=== PATIENT | female | born 1955 | race Caucasian/White ===

== ENCOUNTER 2020-07-26 10:27 | Outpatient (CLI) | payer MEDICARE, SELFPAY ==
--- NOTE | ~2020-07-26 | MM_ITS ---
EXAMINATION: MM screening angelique BI w radha HISTORY: Screening TECHNIQUE: Craniocaudal and mediolateral oblique 3-D tomosynthesis images were obtained and synthetic 2-D images were generated. CAD analysis was submitted and interpreted. COMPARISON: Comparison to multiple prior studies sequentially, with oldest reviewed study dated 08/2010. BREAST PARENCHYMAL COMPOSITION: There are scattered areas of fibroglandular density. FINDINGS: There is no evidence of suspicious mass, calcification, or architectural distortion to sugg est malignancy in either breast. There has been no suspicious interval change. IMPRESSION: 1. No mammographic evidence of malignancy. 2. Recommend routine screening mammography in one year. BI-RADS Category 1: Negative Reviewed, dictated and finalized at location A. TY HOME DEMONSTRATION AGENT
== END 2020-07-26 10:28 | disposition home or self-care (01) ==
PROVIDERS: PCP Family Medicine; Visit Provider Family Medicine
DX: Z12.31 Encounter for screening mammogram for malignant neoplasm of breast (principal)
CPT/HCPCS: 77063; 77067

== ENCOUNTER 2020-10-31 12:55 | Outpatient (CLI) | payer MEDICARE, SELFPAY ==
--- NOTE | ~2020-10-31 | DEXA_ITS ---
Bone Density Report Name: Janki Alcaraz Age: 65 Sex: Female Ethnicity: White Date of : 1955 Indication: postmenopausal; hysterectomy; Referring Provider: NATALIYA SOLER Study: Bone densitometry was performed. Exam Date: October 31, 2020 Accession number: [id number] Bone Density: Region BMD T-score Z-score Classification AP Spine (L1-L4) 0.935 -1.0 0.8 Normal Femoral Neck (Left) 0.815 -0.3 1.2 Normal Total Hip (Left) 1.022 0.7 1.9 Normal Total Hip Bilateral Avg 0.998 0.5 1.7 Normal Femoral Neck (Right) 0.674 -1.6 0.0 Osteopenia Total Hip (Right) 0.973 0.3 1.5 Normal World Health Organization criteria for BMD impression classify patients as: Normal (T-score at or above -1.0), Osteopenia (T-score between -1.0 and -2.5), or Osteoporosis (T-score at or below -2.5). 10-year Fracture Risk(1): Major Osteoporotic Fracture 8.1% Hip Fracture 0.8% Reported Risk Factors: [place] (), Neck BMD=0.674, BMI=38.4 (1) FRAX(R) Version 3.08. Fracture probability calculated for an untreated patient. Fracture probability may be lower if the patient has received treatment. Previous Exams: Region Exam Age BMD T-score BMD Change BMD Change Date g/cm2 vs Baseline vs Previous AP Spine(L1-L4) 10/31/2020 65 0.935 -1.0 -0.157(-14.4%) -0.003(-0.3%)# 07/13/2013 58 0.939 -1.0 -0.154(-14.1%) -0.154(-14.1%) 09/01/2008 53 1.092 0.4 Total Hip(Left) 10/31/2020 65 1.022 0.7 0.004(0.4%)# 0.036(3.6%)# 07/13/2013 58 0.986 0.4 -0.031(-3.1%)# -0.031(-3.1%)# 09/01/2008 53 1.017 0.6 Total Hip(Right) 10/31/2020 65 0.973 0.3 0.024(2.6%)# -0.017(-1.7%)07/13/2013 58 0.990 0.4 0.042(4.4%)# 0.042(4.4%)# 09/01/2008 53 0.948 0.1 *Denotes significance at 95% confidence level, LSC for AP Spine = 0.022 g/cm2, LSC for Total Hip = 0.027 g/cm2 Clinical Information Provided by Patient: Has used the following medications: Vitamin D Has the following medical conditions: Hysterectomy Patient maximum height was 61 Menopause Age: 55 Drinks caffeinated beverages Onset of menses at age 16 Number of children 3 Impression: The patient has low bone mass, based on the Right Femoral Neck T-score. The patient has an estimated ten-year risk of hip fracture of 0.8% and an estimated ten-year risk of major fracture of 8.1%, based on the WHO FRAX algorithm. No significant bone loss was observed. Discussion: BONE DEN
== END 2020-10-31 12:56 | disposition home or self-care (01) ==
LOC: ANHIMG 12:58
PROVIDERS: PCP Family Medicine; Visit Provider Family Medicine
DX: Z78.0 Asymptomatic menopausal state (principal); Z51.81 Encounter for therapeutic drug level monitoring; Z79.899 Other long term (current) drug therapy; R73.03 Prediabetes; E78.2 Mixed hyperlipidemia; E55.9 Vitamin D deficiency, unspecified; I10 Essential (primary) hypertension; E03.9 Hypothyroidism, unspecified; M85.851 Other specified disorders of bone density and structure, right thigh; Z00.00 Encounter for general adult medical examination without abnormal findings
CPT/HCPCS: 77080

== ENCOUNTER 2021-09-29 10:02 | Outpatient (CLI) | payer MEDICARE, SELFPAY ==
--- NOTE | ~2021-09-29 | MM_ITS ---
EXAMINATION: MM screening angelique BI w radha HISTORY: Screening mammogram, family history of breast cancer in her mother. TECHNIQUE: Craniocaudal and mediolateral oblique 3-D tomosynthesis images were obtained and synthetic 2-D images were generated. CAD analysis was submitted and interpreted. COMPARISON: 07/26/2020, 06/17/2019, 11/09/2015 BREAST PARENCHYMAL COMPOSITION: There are scattered areas of fibroglandular density. FINDINGS: There is no evidence of suspicious mass, calcification, or architectural distortion to sugg est malignancy in either breast. There has been no suspicious interval change. IMPRESSION: 1. No mammographic evidence of malignancy. 2. Recommend routine screening mammography in one year. BI-RADS Category 1: Negative Reviewed, dictated and finalized at location A. FIELD TECHNICIAN
== END 2021-09-29 10:03 | disposition home or self-care (01) ==
LOC: ANHIMG 10:05
PROVIDERS: PCP Family Medicine; Visit Provider Family Medicine
DX: Z12.31 Encounter for screening mammogram for malignant neoplasm of breast (principal)
CPT/HCPCS: 77063; 77067

== ENCOUNTER 2021-10-13 11:00 | Outpatient (CLI) | payer MEDICARE, SELFPAY ==
--- NOTE | ~2021-10-13 | XR_ITS ---
XR lumbar spine min 4V DATE: 10/13/2021 11:23 INDICATION: Low back pain TECHNIQUE: AP, lateral, coned lateral lumbosacral and bilateral oblique views COMPARISON: September 10, 2007 lumbar spine FINDINGS: Degenerative spurring of the lower thoracic spine. There is prominent degenerative change at the apophyseal joints of the lower lumbar and lumbosacral a kd with associated minimal grade 1 anterolisthesis at L4-5. There is moderate degenerative disc disease at L1-2 and L3-4 and mild degenerative disc disease of th e remaining interspaces. No spondylolysis. No fracture or bone destruction. The included lower thoracic and lumbar pedicles are intact. The sacroiliac joints appear normal. IMPRESSION: Mild to moderate degenerative disease Degenerative changes apophyseal joints in the lower lumbar and lumbosacral area with associated minim al grade 1 anterolisthesis at L4-5 Reviewed, dictated and finalized at location A. IMPRESSION: Mild to moderate degenerative disease Degenerative changes apophyseal joints in the lower lumbar and lumbosacral area with associated minimal grade 1 anterolisthesis at L4-5
== END 2021-10-13 11:01 | disposition home or self-care (01) ==
LOC: ANHIMG 11:02
PROVIDERS: PCP Family Medicine; Visit Provider Family Medicine
DX: M54.50 Low back pain, unspecified (principal); M51.36 Other intervertebral disc degeneration, lumbar region; M43.16 Spondylolisthesis, lumbar region
CPT/HCPCS: 72110

== ENCOUNTER 2023-03-01 14:16 | Outpatient (CLI) | payer MEDICARE, SELFPAY ==
--- NOTE | ~2023-03-01 | MM_ITS ---
EXAMINATION: MM screening angelique BI w radha HISTORY: Screening mammogram TECHNIQUE: Craniocaudal and mediolateral oblique 3-D tomosynthesis images were obtained and synthetic 2-D images were generated. CAD analysis was submitted and interpreted. COMPARISON: 09/2021, 07/26/2020 bilateral screening mammogram examinations BREAST PARENCHYMAL COMPOSITION: There are scattered areas of fibroglandular density. FINDINGS: There is no evidence of suspicious mass, calcification, or architectural distortion to sugg est malignancy in either breast. There has been no suspicious interval change. IMPRESSION: 1. No mammographic evidence of malignancy. 2. Recommend routine screening mammography in one year. BI-RADS Category 1: Negative Reviewed, dictated and finalized at location A.
== END 2023-03-01 14:17 | disposition home or self-care (01) ==
LOC: ANHIMG 14:18
PROVIDERS: PCP Family Medicine; Visit Provider Family Medicine
DX: Z12.31 Encounter for screening mammogram for malignant neoplasm of breast (principal)
CPT/HCPCS: 77063; 77067

== ENCOUNTER 2023-03-22 09:34 | Outpatient (CLI) | payer MEDICARE, SELFPAY ==
--- NOTE | ~2023-03-22 | XR_ITS ---
EXAMINATION: XR chest 2V 03/22/2023 09:55 INDICATION: Shortness of breath PROCEDURE: 2 view chest COMPARISON: 03/30/2015 FINDINGS: The lungs are clear. The cardiomediastinal silhouette is within normal limits. There are no pleural effusions. There is no pneumothorax suspected. IMPRESSION: 1: NO ACUTE CARDIOPULMONARY DISEASE. Reviewed, dictated and finalized at location B.
== END 2023-03-22 09:35 | disposition home or self-care (01) ==
PROVIDERS: PCP Family Medicine; Visit Provider Family Medicine
DX: R06.02 Shortness of breath (principal); R07.9 Chest pain, unspecified
CPT/HCPCS: 71046

== ENCOUNTER 2023-03-29 08:27 | Outpatient (CLI) | payer MEDICARE, SELFPAY ==
--- NOTE | 2023-03-29 | EST_ITS ---
Patient Info Name: Janki Alcaraz Age: 68 years : 1955 Gender: Female Ht: 61 in Wt: 199 lbs BSA: 2.02 m2 HR: 65 bpm BP: 143 / 84 mmHg Heart Rhythm: Sinus Rhythm Exam Date: 03/29/2023 10:35 AM Exam Location: [facility] Stress Patient Status: Outpatient Admit Date: 03/29/2023 Staff Ordering Physician: Yamilet Gerard MD Attending Provider: Yamilet Gerard MD Exercise Technologist: Etta Stevenson CT Exercise Physician: Malick Rivas DO Exam Type: CA stress denny w NM Study Info Indications R07.9 - Chest pain, unspecified A regadenoson stress test was performed. Summary 1. 1. Negative lexiscan stress test for ischemic ST changes by ECG criteria. 2. 2. Baseline hypertension. 3. 3. Nuclear scan to follow and will be reported separately. Please correlate with it. 4. 4. Patient informed of the above results. Protocol: Lexiscan Stress ECG Details Stage: REST Duration (min): 2 min : 13 sec HR (bpm): 67 SBP (mmHg): 143 DBP (mmHg): 84 Stage: REST Duration (min): 8 min : 54 sec HR (bpm): 66 SBP (mmHg): 143 DBP (mmHg): 84 Stage: STAGE 1 Duration (min): 0 min : 59 sec HR (bpm): 99 SBP (mmHg): 143 DBP (mmHg): 84 Stage: RECOVERY Duration (min): 1 min : 0 sec HR (bpm): 92 SBP (mmHg): 160 DBP (mmHg): 88 Stage: RECOVERY Duration (min): 2 min : 0 sec HR (bpm): 84 SBP (mmHg): 160 DBP (mmHg): 88 Stage: RECOVERY Duration (min): 3 min : 0 sec HR (bpm): 80 SBP (mmHg): 151 DBP (mmHg): 86 Stage: RECOVERY Duration (min): 4 min : 0 sec HR (bpm): 79 SBP (mmHg): 151 DBP (mmHg): 86 Stage: RECOVERY Duration (min): 4 min : 31 sec HR (bpm): 76 SBP (mmHg): 151 DBP (mmHg): 86 Rest HR: 66 bpm Peak HR: 102 bpm Rest Sys BP: 143 mmHg Peak Sys BP: 160 mmHg Max Pred HR: 152 bpm % Max Pred HR: 67 % Target HR: 129 bpm Max RPP: 16,320 bpm*mmHg Termination Reason: Completed protocol Cardiac Symptoms: Shortness of breath Total Time: 1 min : 0 sec Rest Seals BP: 84 mmHg Peak Seals BP: 88 mmHg Total Dose: 0.4 mg Resting ECG Sinus rhythm, borderline T wave in ant/inf leads. Stress ECG No ST changes. Arrhythmias None. Report Signatures
--- NOTE | ~2023-03-29 | NM_ITS ---
EXAMINATION: NM denny stress w perfusion DATE: 03/29/2023 11:38 INDICATION: Shortness of breath TECHNIQUE: Rest images were obtained following intravenous administration of 10.4 mCi Tc99m tetrofosm in (Myoview). The patient was infused intravenously with Lexiscan (Regadenoson). Then, 34.6 mCi Tc99m tetrofosmin (Myoview) was administered intravenously, and stress images were obtained. Data was gaston nstructed into short axis and horizontal and vertical long axis SPECT images. Gated SPECT images were also obtained. COMPARISON: None. FINDINGS: There is no definite reversible or fixed perfusion abnormality to suggest ischemia or infar ction. There is normal left ventricular chamber size, wall motion and ejection fraction. Left ventr icular ejection fraction measures >70%. IMPRESSION: 1. Normal myocardial perfusion at rest and during stress. 2. Left ventricular ejection fraction measuring >70%. Reviewed, dictated and finalized at location A.
--- NOTE | 2023-03-29 08:39 | ECHO_ITS ---
Patient Info Name: Janki Alcaraz Age: 68 years : 1955 Gender: Female Ht: 61 in Wt: 200 lbs BSA: 2.02 m2 HR: 69 bpm BP: 161 / 100 mmHg Technical Quality: Fair Exam Date: 03/29/2023 8:47 AM Exam Location: [facility] Patient Status: Outpatient Admit Date: 03/29/2023 Staff Ordering Physician: Yamilet Gerard MD Forming Mill Operator: Carmen Mayo RDCS Attending Provider: Yamilet Gerard MD Referring Physician: Moustapha ALACLA; Exam Type: CA echo doppler color flow Study Info Indications R07.9 - Chest pain, unspecified Complete two-dimensional, color flow and Doppler transthoracic echocardiogram is performed. Summary 1. Complete two-dimensional, color flow and Doppler transthoracic echocardiogram is performed. 2. Left ventricular chamber dimension is normal. 3. Left ventricular systolic function is normal, estimated at 60-65%. 4. The left ventricular diastolic function is grade I diastolic dysfunction. 5. E/e' 8 is minimally elevated. 6. Global longitudinal strain is mildly abnormal at -16.6%. 7. No pulmonary hypertension, estimated pulmonary arterial systolic pressure is 17 mmHg. Left Ventricle E/e' 8 is minimally elevated. Global longitudinal strain is mildly abnormal at -16.6%. Left ventricular chamber dimension is normal. Left ventricular systolic function is normal, estimated at 60-65%. The left ventricular diastolic function is grade I diastolic dysfunction. Right Ventricle Right ventricular chamber dimension is normal. Right ventricular systolic function is normal. Left Atria Left atrial chamber dimension is normal. Right Atria Right atrial chamber dimension is normal. Aortic Valve The aortic valve is trileaflet. There is no aortic valve stenosis. There is no aortic valve regurgitation. Pulmonic Valve There is no pulmonic regurgitation. Mitral Valve There is no mitral valve stenosis. There is no mitral valve regurgitation. Tricuspid Valve There is no tricuspid valve regurgitation. No pulmonary hypertension, estimated pulmonary arterial systolic pressure is 17 mmHg. Pericardium/Pleural There is no pericardial effusion. Inferior Vena Cava Normal inferior vena cava with >50% collapse upon inspiration consistent with normal right atrial pressure, 5 mmHg. Aorta The aortic root size at the sinus of Valsalva is normal. Left Ventricular Outflow Tract Name Value Normal LVOT 2D LVOT Diameter 1.9 cm LVOT Doppler LVOT Peak Gradient 4 mmHg LVOT Mean Gradient 2 mmHg LVOT VTI 18 cm LVOT VTI/AV VTI Ratio 0.8 LVOT Stroke Volume 53 ml LVOT CO 4.0 l/min LVOT CI 2.0 l/min/m2 Pulmonic Valve Name Value Normal RVOT Doppler RVOT Peak Gradient 1 mmHg PV Doppler
== END 2023-03-29 08:28 | disposition home or self-care (01) ==
PROVIDERS: PCP Family Medicine; Visit Provider Family Medicine
DX: R06.02 Shortness of breath (principal); R07.9 Chest pain, unspecified
CPT/HCPCS: 78452; 93017; 93306; A9502; J2785

== ENCOUNTER 2023-05-23 13:35 | Outpatient (CLI) | payer MEDICARE, SELFPAY ==
--- NOTE | 2023-05-24 09:45 | WPDPFTINT ---
PFT Procedure Performed PFT Procedure Performed Spirometry with Pre/Post Bronchodilator Plethysmography (Lung Vol) Diffusing Cap (DLCO) Flow Vol Loop PFT Interpretation Lung volumes were measured with the body plethysmography method. The diminished expiratory reserve volume is related to obesity. The remaining lung volumes are unremarkable. Spirometry showed normal expiratory flow rates and a normal FEV1 to FVC ratio 78%. Following administration of a bronchodilator there was no significant increase in the expiratory flow rates. Lung diffusion capacity is within the normal range at 99% predicted. The flow volume loop is unremarkable. Impression: Spirometry, lung volumes, and lung diffusion capacity all within the normal range.
== END 2023-05-23 13:36 | disposition home or self-care (01) ==
PROVIDERS: PCP Family Medicine; Visit Provider Internal Medicine Cardiovascular Disease
DX: R06.09 Other forms of dyspnea (principal)
CPT/HCPCS: 94060; 94726; 94729

== ENCOUNTER 2023-12-05 15:24 | Outpatient (CLI) | payer MEDICARE, SELFPAY ==
--- NOTE | ~2023-12-05 | XR_ITS ---
Lumbosacral Spine: AP, oblique, and lateral views Clinical History: Pain Findings: The normal lordotic curve is maintained. No fracture or subluxation evident. There is moder ate degenerative disc narrowing at L2-L3. There are mild degenerative changes in the remainder of the lumbar spine. There are moderate moderate to advanced facet joint degenerative changes, worst at L4- L5 and L5-S1 The sacroiliac joints are normally outlined. Impression: Moderate degenerative spondylosis, as above. Reviewed, dictated and finalized at location M. Impression: Moderate degenerative spondylosis, as above.
--- NOTE | ~2023-12-05 | XR_ITS ---
AP view of the pelvis and AP and lateral views of the bilateral hips Clinical history: Pain Findings: No acute fracture or dislocation is seen. Osseous alignment is anatomic. Bilateral hip and SI joint spaces are preserved. Soft tissues are unremarkable. Impression: No significant abnormality is seen. Reviewed, dictated and finalized at location . Impression: No significant abnormality is seen.
== END 2023-12-05 15:25 | disposition home or self-care (01) ==
PROVIDERS: PCP Family Medicine; Visit Provider Family Medicine
DX: M43.06 Spondylolysis, lumbar region (principal); M47.896 Other spondylosis, lumbar region; M25.551 Pain in right hip; M25.552 Pain in left hip
CPT/HCPCS: 72110; 73521

== ENCOUNTER 2025-06-02 13:23 | Outpatient (CLI) | payer MEDICARE, SELFPAY ==
--- NOTE | ~2025-06-02 | MM_ITS ---
EXAMINATION: MM screening angelique BI w radha HISTORY: Screening TECHNIQUE: Craniocaudal and mediolateral oblique 3-D tomosynthesis images were obtained and synthetic 2-D images were generated. CAD analysis was submitted and interpreted. COMPARISON: Comparison to multiple prior studies sequentially, with oldest reviewed study dated 11/09/2015. BREAST PARENCHYMAL COMPOSITION: Not Dense. The breasts are almost entirely fatty. FINDINGS: There is a new mass upper outer quadrant of the left breast, middle third. The right breast is stable without evidence for malignancy. IMPRESSION: 1. New left breast mass upper outer quadrant, middle third, partially obscured by fibroglandular tissue. 2. Additional mammographic views and possible breast ultrasound are recommended. BI-RADS Category 0: Incomplete: Needs additional imaging evaluation. Reviewed, dictated and finalized at location O. ORATIVE COORDINATOR IMPRESSION: 1. New left breast mass upper outer quadrant, middle third, partially obscured by fibroglandular tissue. 2. Additional mammographic views and possible breast ultrasound are recommended . BI-RADS Category 0: Incomplete: Needs additional imaging evaluation.
--- OUTSIDE RECORDS SUMMARY | 2025-06-03 12:26 | XMS_ITS | Clinical Summary ---
Author Organization [facility] Address [address] [place] [address] Phone Care Team Providers Care Quality Improvement Engineer Name Role Phone Unavailable Primary Care Provider Unavailabl e Social History Tobacco Use Types Packs/Day Years Used Date Smoking Tobacco: Never Assessed Comments Unknown Sex and Gender Information Value Date Recorded Sex Assigned at Not on file Legal Sex Female 10:57 AM CDT Gender Identity Not on file Sexual Orientation Not on file Plan of Treatment Health Maintenance Due Date Last Done Comments DTAP/TDAP/TD VACCINES (1 - Tdap) 1974 BREAST CANCER SCREENING 1995 COLORECTAL SCREENING 2000 Colorectal Cancer Screening 2000 FIT-DNA Q 3 years 2000 FIT/FOBT Q 1 year 2000 Flex Sig/CT Colonography Q 5 years 2000 PNEUMOCOCCAL VACCINE 50+ YEARS (1 of 1 - PCV) 03/20/20 05 ZOSTER VACCINE (1 of 2) 2005 OSTEOPOROSIS SCREENING 2020 INFLUENZA VACCINE (#1) 2025 RSV VACCINE (60+ or ) (1 - 1-dose 75+ series) 2030
== END 2025-06-02 13:24 | disposition home or self-care (01) ==
LOC: CHSIMG 13:24
PROVIDERS: PCP Family Medicine; Visit Provider Student in an Organized Health Care Education/Training Program
DX: Z12.31 Encounter for screening mammogram for malignant neoplasm of breast (principal); R92.8 Other abnormal and inconclusive findings on diagnostic imaging of breast
CPT/HCPCS: 77063; 77067

== ENCOUNTER 2025-07-12 09:38 | Outpatient (CLI) | payer MEDICARE, SELFPAY ==
--- NOTE | ~2025-07-12 | MMUS_ITS ---
EXAMINATION: MM diagnostic angelique LT w radha, US breast LT limited INDICATION: 70-year old female; follow up abnormal mammogram. COMPARISON: 06/02/25 TECHNIQUE: Digital breast tomosynthesis True lateral and spot compression of the LEFT breast were obtained with computer-aided detection to assist in interpretation of the study. FINDINGS: The breasts are almost entirely fatty. The mass of concern in the outer left breast has circumscribed margins on spot compression views. BILATERAL BREAST ULTRASOUND FINDINGS: Targeted evaluation of the area of concern revealed a 0.5cm hypoechoic mass at 3:00, 3cm FN which correlate to the mammogram finding. IMPRESSION: 1. Suspicious New left breast mass at 3:00 location. Recommend biopsy under ultrasound guidance. RECOMMENDATION: Ultrasound-guided core biopsy of left breast mass at 3:00. BI-RADS 4, SUSPICIOUS Reviewed, dictated and finalized at location B. TER RUST ERADICATOR IMPRESSION: 1. Suspicious New left breast mass at 3:00 location. Recommend biopsy under ul trasound guidance. RECOMMENDATION: Ultrasound-guided core biopsy of left breast mass at 3:00. BI-RADS 4, SUSPICIOUS
== END 2025-07-12 09:39 | disposition home or self-care (01) ==
LOC: CHSIMG 09:40
PROVIDERS: PCP Family Medicine; Visit Provider Family Medicine
DX: R92.8 Other abnormal and inconclusive findings on diagnostic imaging of breast (principal)
CPT/HCPCS: 76642; 77061; 77065; G0279

== ENCOUNTER 2025-07-19 10:43 | Outpatient (CLI) | payer MEDICARE, SELFPAY ==
--- NOTE | ~2025-07-19 | XR_ITS ---
EXAMINATION: XR chest 2V 07/19/2025 11:31 INDICATION: Shortness of breath for 7-8 months PROCEDURE: 2 view chest COMPARISON: 03/22/2023 FINDINGS: The lungs are clear. The cardiomediastinal silhouette is within normal limits. There are no pleural effusions. There is no pneumothorax suspected. IMPRESSION: 1: NO ACUTE CARDIOPULMONARY DISEASE. Reviewed, dictated and finalized at location O. NS SERVICE CONDUCTOR
== END 2025-07-19 10:44 | disposition home or self-care (01) ==
LOC: GOSHIMG 10:43
PROVIDERS: PCP Family Medicine; Visit Provider Family Medicine
DX: R06.02 Shortness of breath (principal)
CPT/HCPCS: 71046

== ENCOUNTER 2025-07-20 08:43 | Outpatient (CLI) | payer MEDICARE, SELFPAY ==
--- NOTE | ~2025-07-20 | MMUS_ITS ---
PROCEDURE(S): US breast biopsy LT w image, MM post biopsy diagnostic LT INDICATION(S): Left breast mass COMPARISON(S): Studies dating back to June 02 BREAST PARENCHYMAL COMPOSITION: Not Dense: There are scattered areas of fibroglandular tissue. TECHNIQUE/FINDINGS: Informed consent was obtained. Under sterile conditions, 1% lidocaine was injected as local anesthetic. Lidocaine with epinephrine was utilized for more deep anesthesia. A skin wil was made with a scalpel, and a coaxial was placed with ultrasound guidance. Following that, multiple samples were obtained with a 14-gauge spring- loaded biopsy needle and sonographic guidance. A large amount of bile lidocaine was necessary for patient comfort. The mass in question was not well seen following the introduction of the third dose of lidocaine. Samples were obtained from the area thought to represent the mass in question. No complications occurred. The patient tolerated the procedure well. A biopsy marker was placed in the biopsy bed at the end of the procedure. A two-view mammogram demonstrates the biopsy marker in the expected location. IMPRESSION: Status post ultrasound-guided core biopsy. Pathology is pending. Reviewed, dictated and finalized at location A. C ADAPTER IMPRESSION: Status post ultrasound-guided core biopsy. Pathology is pending.
--- OUTSIDE RECORDS SUMMARY | 2025-07-20 08:51 | XMS_ITS | Clinical Summary ---
Author Organization [facility] Address [address] [place] [address] Phone Care Team Providers Care Disassembler Product Name Role Phone Unavailable Primary Care Provider [...]
--- NOTE | 2025-07-20 10:46 | S_PTH ---
PATIENT: Janki Alcaraz LOC: [facility] U#:[id number] AGE/SX: 70/F ROOM: RE07/20/[address]: Yamilet Gerard MD : 1955 BED: DIS: 07/20/2025 SPEC #: [id number] RECD: 07/20/25 11:54 STATUS: MARCIA HOPKINS #: [id number] EVY: 07/20/25 10:[address]: Yamilet Gerard DEPT: [facility] Surgical RECD BY: Chantel Perez Tissues: A - Breast Biopsy Procedures: Hematoxylin and Eosin Stain Gross and Microscopic Level 4
== END 2025-07-20 08:44 | disposition home or self-care (01) ==
PROVIDERS: PCP Family Medicine; Visit Provider Family Medicine
DX: N60.02 Solitary cyst of left breast (principal); R92.8 Other abnormal and inconclusive findings on diagnostic imaging of breast
CPT/HCPCS: 19083; 77065; 88305; A4648